=== PATIENT | female | born 1985 | race Caucasian/White ===

== ENCOUNTER → 2017-01-06 | Outpatient (CLI) | payer BC | LOC: ZCOL.LAB 12:22 | DX: N91.2 Amenorrhea, unspecified (principal); Z32.01 Encounter for pregnancy test, result positive ==

== ENCOUNTER → 2017-01-08 | Outpatient (CLI) | payer BC | LOC: COL.RAD 13:06 | DX: O26.31 Retained intrauterine contraceptive device in pregnancy, first trimester (principal); Z3A.01 Less than 8 weeks gestation of pregnancy ==

== ENCOUNTER → 2021-10-26 | Outpatient (CLI) | payer BC | LOC: COL.RAD 11:54 | DX: R10.2 Pelvic and perineal pain (principal); Z80.41 Family history of malignant neoplasm of ovary ==